=== PATIENT | male | born 1960 | race Caucasian/White ===

== ENCOUNTER → 2020-04-04 13:01 | Outpatient (BNVA) | payer BC, SELFPAY | PROVIDERS: Family Provider Nurse Practitioner Family; PCP Nurse Practitioner Family; Visit Provider Podiatrist Foot & Ankle Surgery | DX: S92.012A Displaced fracture of body of left calcaneus, initial encounter for closed fracture (principal); S82.832A Other fracture of upper and lower end of left fibula, initial encounter for closed fracture; W17.89XA Other fall from one level to another, initial encounter | CPT/HCPCS: 73562; 73650 ==

== ENCOUNTER → 2020-04-21 11:10 | Outpatient (BNVA) | payer BC, SELFPAY | PROVIDERS: Family Provider Nurse Practitioner Family; PCP Nurse Practitioner Family; Visit Provider Podiatrist Foot & Ankle Surgery | DX: S92.012A Displaced fracture of body of left calcaneus, initial encounter for closed fracture (principal); S82.832A Other fracture of upper and lower end of left fibula, initial encounter for closed fracture; X58.XXXA Exposure to other specified factors, initial encounter | CPT/HCPCS: 73610; 73650 ==

== ENCOUNTER → 2020-05-10 13:55 | Outpatient (BNVA) | payer BC, SELFPAY | PROVIDERS: Family Provider Nurse Practitioner Family; PCP Nurse Practitioner Family; Visit Provider Orthopaedic Surgery | DX: S92.012A Displaced fracture of body of left calcaneus, initial encounter for closed fracture (principal); S82.121A Displaced fracture of lateral condyle of right tibia, initial encounter for closed fracture; S82.832A Other fracture of upper and lower end of left fibula, initial encounter for closed fracture; X58.XXXA Exposure to other specified factors, initial encounter | CPT/HCPCS: 73560; 73610; 73650 ==

== ENCOUNTER → 2020-05-31 11:16 | Outpatient (BNVA) | payer BC, SELFPAY | PROVIDERS: Family Provider Nurse Practitioner Family; PCP Nurse Practitioner Family; Visit Provider Podiatrist Foot & Ankle Surgery | DX: S82.121A Displaced fracture of lateral condyle of right tibia, initial encounter for closed fracture (principal); S92.012D Displaced fracture of body of left calcaneus, subsequent encounter for fracture with routine healing; X58.XXXA Exposure to other specified factors, initial encounter | CPT/HCPCS: 73560; 73610; 73650 ==

== ENCOUNTER → 2020-06-26 09:15 | Outpatient (BNVA) | payer BC, SELFPAY | PROVIDERS: Family Provider Nurse Practitioner Family; PCP Nurse Practitioner Family; Visit Provider Podiatrist Foot & Ankle Surgery | DX: S82.832D Other fracture of upper and lower end of left fibula, subsequent encounter for closed fracture with routine healing (principal); S92.012D Displaced fracture of body of left calcaneus, subsequent encounter for fracture with routine healing; W14.XXXD Fall from tree, subsequent encounter | CPT/HCPCS: 73650 ==

== ENCOUNTER → 2020-10-26 12:43 | Outpatient (BNVA) | payer BC, SELFPAY | PROVIDERS: Family Provider Nurse Practitioner Family; PCP Nurse Practitioner Family; Visit Provider Podiatrist Foot & Ankle Surgery | DX: S92.012D Displaced fracture of body of left calcaneus, subsequent encounter for fracture with routine healing (principal); X58.XXXD Exposure to other specified factors, subsequent encounter | CPT/HCPCS: 73650 ==

== ENCOUNTER → 2021-10-15 16:45 | Outpatient (BNVA) | payer BC, SELFPAY | PROVIDERS: Family Provider Nurse Practitioner Family; PCP Nurse Practitioner Family; Visit Provider Surgery | DX: Z20.822 Contact with and (suspected) exposure to COVID-19 (principal) | CPT/HCPCS: 87635 ==

== ENCOUNTER 2021-10-19 05:49 | Day surgery (SDC) | payer BC, SELFPAY ==
[2021-10-17 13:26] VITALS: BMI 37.3
[2021-10-19 06:06] VITALS: PULSE 101; RESP 18; TEMP 36.1; O2SAT 96
[2021-10-19] MEDS: sodium chloride 0.9% 1,000 ML 30 ML IV (06:19)
--- NOTE | 2021-10-19 06:44 | ANES.PREANE2 ---
Pre-Anesthetic Assessment Height/Weight: Height 1.78 m Weight 117.934 kg Temp Pulse Resp Pulse Ox 97.0 F L 101 H 18 96 10/19/21 06:06 10/19/21 06:06 10/19/21 06:06 10/19/21 06:06 Preop Diagnosis: diagnostic Operation Date: 10/19/21 07:00 Proposed Procedures p Colonoscopy 55566 Z12.11(Not Applicable) - Durga Reece MD Was Beta Sadiq taken within 24 hours: N/A Was Clonidine taken within 24 hours: N/A Last intake: Intake Last Liquid Date 10/18/21 Last Liquid Time 21:30 Last Solid Date 10/18/21 Last Solid Time 11:00 Social Alcohol (1-2 beers per week) and No tobacco Exam alert and oriented x 3 Airway Submandibular: within normal limits Cervical ROM: within normal limits Dentition: full History/ROS No significant complaints Anesthetic Plan ASA status: 2 Anesthesia: Anesthesia Evaluation and MAC Risk of > 500 ml blood loss (7ml/kg in children): No Medications/Allergies Home Medications Medication Instructions Recorded Confirmed Last Taken Type No Known Home Medications 08/20/21 10/19/21 Unknown History Allergies Allergy/AdvReac Type Severity Reaction Status Date / Time No Known Allergies Allergy Verified 10/19/21 06:04 Current Medications Generic Name Dose Route Start Last Admin Trade Name Rigoq PRN Reason Stop Dose Admin Sodium Chloride 1,000 mls @ 30 mls/hr 10/19/21 06:00 10/19/21 06:19 Sodium Chloride 0.9% IV 10/20/21 05:59 30 mls/hr .Q24H VINCENT Administration PFSH Anesthesia Social History Alcohol intake: current Alcohol intake frequency: holidays/special occasions only Data Anesthesia Cardiac Studies: No Data to Display
--- NOTE | 2021-10-19 07:00 | W.PM.OPSFHP ---
Same Day Surgery H&P Indication for Procedure/HPI DATE OF PROCEDURE: October 19, 2021 CHIEF COMPLAINT/INDICATIONFOR SURGICAL PROCEDURE: screening PREOP DIAGNOSIS: diagnostic PLANNED PROCEDURE: Operation Date: 10/19/21 07:00 Proposed Procedures p Colonoscopy 37941 Z12.11(Not Applicable) - Durga Reece MD Medications/Allergies* Home Medications Medication Instructions Recorded Confirmed Type No Known Home Medications 08/20/21 10/19/21 History Allergies/Adverse Reactions Allergy/AdvReac Type Severity Reaction Status Date / Time No Known Allergies Allergy Verified 10/19/21 06:04 Current Medications: Generic Name Dose Route Start Last Admin Trade Name Freq PRN Reason Stop Dose Admin Sodium Chloride 1,000 mls @ 30 mls/hr 10/19/21 06:00 10/19/21 06:19 Sodium Chloride 0.9% IV 10/20/21 05:59 30 mls/hr .Q24H VINCENT Administration Pertinent History/Comorbid Conditions* Social History Alcohol intake: current Alcohol intake frequency: holidays/special occasions only Pertinent Exam Findings alert, oriented x 3 and regular rate & rhythm Recommendations Surgery/Procedure today Coding Level of Care Code Acute Registered Dietitian for Ella Rahman
[2021-10-19 07:28] VITALS: BP 120/64; PULSE 90; RESP 18; TEMP 36.6; O2SAT 92
[2021-10-19 07:38] VITALS: BP 118/90; PULSE 86; RESP 18; O2SAT 93
--- NOTE | 2021-10-19 12:13 | ANE.PACU2 ---
Inpatient post-anesthesia follow up: Airway intact: Yes Vital signs: Temperature 97.8 F Pulse Rate 86 Respiratory Rate 18 Blood Pressure 118/90 Pulse Oximetry 93 Oxygen Delivery Me thod Room Air Oxygen Flow Rate Fraction of Inspir ed Oxygen Hydration adequate: Yes Nausea and vomiting: No Pain level: 1 Mental status: Baseline
== END 2021-10-19 07:55 | disposition home or self-care (01) ==
PROVIDERS: PCP Family Medicine; Visit Provider Surgery
PROC: 0DJD8ZZ Inspection of Lower Intestinal Tract, Via Natural or Artificial Opening Endoscopic (ICD-10-PCS; CPT 45378; principal; 2021-10-19 07:00)
DX: Z12.11 Encounter for screening for malignant neoplasm of colon (principal); D12.4 Benign neoplasm of descending colon; D12.5 Benign neoplasm of sigmoid colon; K57.30 Diverticulosis of large intestine without perforation or abscess without bleeding; K64.8 Other hemorrhoids
CPT/HCPCS: 45380; 45385; 88305; J2704; J7030

== ENCOUNTER → 2022-07-10 15:03 | Outpatient (BNVA) | payer BC, SELFPAY | PROVIDERS: PCP Family Medicine; Visit Provider Specialist | DX: R22.32 Localized swelling, mass and lump, left upper limb (principal) | CPT/HCPCS: 73030 ==

== ENCOUNTER 2022-08-22 12:54 | Outpatient (CLI) | payer BC, SELFPAY ==
--- NOTE | 2022-08-22 13:45 | MR_ITS ---
WS: [id number] MRI LEFT SHOULDER with and without contrast. HISTORY: shoulder pain, mass. Mass present for 1.5 years. COMPARISON: Shoulder radiograph 07/10/2022 TECHNIQUE: Multiplanar sequences of the shoulder joint are submitted. Superficial mass is identified adjacent to the palpable marker. This exophytic soft tissue mass measu res 11 x 8 mm. This is predominantly low to intermediate signal on all sequences without significant enhancement. No additional masses are identified. Mild AC joint arthritis. Minimal osteophyte encroachment upon the supraspinatus. Biceps tendon remain s in a normal position. No os acromion. There is breathing motion artifact causing some limitation. No tendon tears are identified. No muscle atrophy. No joint effusion. No definite labral abnormalities are identified. There is some very mild increased signal at the base of the anterior labrum but no tear is identified. MR/MR shoulder LT wo/w con [id number] IMPRESSION: 1. Nonenhancing exophytic soft tissue nodule measures 11 x 8 mm along the supe rior LEFT shoulder. Very superficial lesion. By imaging nonaggressive but shoul d probably be removed to exclude a skin neoplasm. 2. Mild AC joint arthritis with encroachment. 3. No rotator cuff tear identified.
[2022-08-22] MEDS: gadobenate dimeglumine 20 mL vial IV (14:01)
== END 2022-08-22 12:55 | disposition home or self-care (01) ==
PROVIDERS: PCP Family Medicine; Visit Provider Specialist
DX: M13.812 Other specified arthritis, left shoulder (principal)
CPT/HCPCS: 73223; A9577

== ENCOUNTER → 2024-04-13 15:02 | Outpatient (BNVA) | payer BC, SELFPAY | PROVIDERS: PCP Family Medicine; Visit Provider Podiatrist Foot & Ankle Surgery | DX: M19.172 Post-traumatic osteoarthritis, left ankle and foot | CPT/HCPCS: 73610 ==